=== PATIENT | male | born 1990 ===

== ENCOUNTER 2023-10-12 20:14 | Emergency (ER) | payer BC, OTHER ==
[2023-10-12] MEDS ORDERED: Lidocaine 1% 5 ML VIAL INJECT STA (20:58)
[2023-10-12] MEDS ORDERED: Diphtheria,Pertussis(Acell),Tetanus Vaccine 0.5 ML Syringe IM ONE (20:58)
== END 2023-10-12 22:29 | disposition home or self-care (01) ==
LOC: MW.ED 20:14
DX: S61.210A Laceration without foreign body of right index finger without damage to nail, initial encounter (principal); Z23 Encounter for immunization; W26.0XXA Contact with knife, initial encounter
CPT/HCPCS: 12002; 90471; 90715; 99282-25; 99283; J3490